=== PATIENT | male | born 1945 | race Caucasian/White ===

== ENCOUNTER → 2020-05-28 10:05 | Outpatient (BNVA) | payer MEDICARE, OTHER, SELFPAY | PROVIDERS: Family Provider Family Medicine Adult Medicine; PCP Emergency Medicine Emergency Medical Services; Visit Provider Urology | DX: N40.1 Benign prostatic hyperplasia with lower urinary tract symptoms (principal); N39.41 Urge incontinence; N13.8 Other obstructive and reflux uropathy | CPT/HCPCS: 81001 ==

== ENCOUNTER → 2023-08-01 12:53 | Outpatient (BNVA) | payer OTHER, SELFPAY | PROVIDERS: Family Provider Family Medicine Adult Medicine; PCP Emergency Medicine Emergency Medical Services; Referring Provider Emergency Medicine Emergency Medical Services; Visit Provider Student in an Organized Health Care Education/Training Program | DX: M25.561 Pain in right knee (principal); M25.562 Pain in left knee; M17.0 Bilateral primary osteoarthritis of knee | CPT/HCPCS: 73560; 73565; 99204 ==

== ENCOUNTER → 2023-10-03 14:34 | Outpatient (BNVA) | payer OTHER, SELFPAY | PROVIDERS: Family Provider Family Medicine Adult Medicine; PCP Emergency Medicine Emergency Medical Services; Visit Provider Student in an Organized Health Care Education/Training Program | DX: M17.0 Bilateral primary osteoarthritis of knee (principal); Z01.818 Encounter for other preprocedural examination | CPT/HCPCS: 80053; 81001; 85025; 99214 ==

== ENCOUNTER 2023-10-05 13:01 | Outpatient (CLI) | payer OTHER, SELFPAY ==
--- NOTE | 2023-10-05 13:00 | CT_ITS ---
WS: [id number] CT LEFT knee, noncontrast HISTORY: djd TECHNIQUE: Protocol for JOSIAS total knee replacement has been obtained. This includes axial imaging th rough the LEFT hip, LEFT knee and LEFT ankle. DLP: 1025.57 mGy COMPARISON: None available. Pelvis: No osseous destruction. Normal appearance of the joint space. LEFT knee: Mild to moderate tricompartment joint space narrowing with osteophytes. Small suprapatella r joint effusion. There is a large lobulated Peterson's cyst. Calcification in the popliteal artery. Unremarkable LEFT ankle. IMPRESSION: CT imaging provided for [facility] robotic total knee replacement.
== END 2023-10-05 13:02 | disposition home or self-care (01) ==
LOC: RAD 13:01
PROVIDERS: PCP Emergency Medicine Emergency Medical Services; Visit Provider Student in an Organized Health Care Education/Training Program
DX: M17.0 Bilateral primary osteoarthritis of knee (principal)
CPT/HCPCS: 73700

== ENCOUNTER 2023-10-23 11:02 | Observation (INO) | payer OTHER, SELFPAY ==
[2023-10-23] VITALS (20 sets, daily range): BP systolic 91–131; BP diastolic 51–75; PULSE 60–107; RESP 14–20; TEMP 36.1–36.5; O2SAT 91–99; BMI 23.3; BMI 24.4
[2023-10-23] MEDS: lactated ringers 500 ML IV (06:41)
[2023-10-23] MEDS: ketorolac 30 mg/mL INJ IVP (06:43)
[2023-10-23] MEDS: acetaminophen 1,000 MG/100 ML PIGGYBACK 400 MG IV ×3 (06:47→18:42)
[2023-10-23] MEDS: scopolamine 1.5 Patch 1 PATCH TRANSDERMA (06:48)
[2023-10-23 06:50] LABS: Basophils # 0.1 10^3/uL (0.0-0.1); Basophils % 1.7 %; Eosinophils # 0.9 10^3/uL (0.0-0.8); Eosinophils % 11.7 %; Hematocrit 41.4 % (37-53); Lymphocytes # 2.3 10^3/uL (0.8-4.8); Lymphocytes % 30.4 %; Mean Corpuscular HGB Conc 34.1 g/dL (30-55); Mean Corpuscular Hemoglobin 32.3 pg (27-33); Mean Corpuscular Volume 94.7 fl (82-101); Mean Platelet Volume 8.6 fL (7.4-10.4); Monocytes # 0.7 10^3/uL (0.2-0.9); Monocytes % 9.4 %; Neutrophils # 3.46 10^3/uL (1.8-7.7); Neutrophils % 46.7 %; Nucleated Red Blood Cells % 0 %; Platelet Count 244 10^3/cmm (157-399); Red Blood Count 4.37 10^6/uL (3.85-5.65); Red Cell Distribution Width 13.4 % (12.1-15.1); White Blood Count 7.43 10^3/uL (3.29-11.43)
--- NOTE | 2023-10-23 07:03 | W.PM.OPSUD ---
Surgery/Procedure H&P Update DATE OF PROCEDURE: October 23, 2023 DATE H&P PERFORMED: 10/03/22 H&P UPDATE INFORMATION: I have reviewed H&P completed within last 30 days, I have examined patient prior to procedure and No changes to prior documentation PREOP DIAGNOSIS: left knee degenerative joint disease PRIMARY INDICATION FOR PROCEDURE: Left knee degenerative joint disease PLANNED PROCEDURE: Operation Date: 10/23/23 08:05 Proposed Procedures p Left Kaiser Robot Total Knee Arthroplasty(Left) - Juan Ramon Flores DO
[2023-10-23 07:11] LABS: Anion Gap 14.4 (5-19); Blood Urea Nitrogen 20 mg/dL (8-23); Calcium 9.6 mg/dL (8.5-10.5); Carbon Dioxide 26 mmol/L (22-29); Chloride 101 mmol/L (98-107); Glucose 99 mg/dL (65-115); Osmolality Calculated 287 mOsm/kg (285-295); Potassium 4.4 mmol/L (3.5-5.1); Sodium 137 mmol/L (136-145)
[2023-10-23] MEDS: sodium chloride 0.9% 1,000 ML 30 ML IV (07:21)
--- NOTE | 2023-10-23 07:25 | ANES.PREANE2 ---
Pre-Anesthetic Assessment Height/Weight: Height 1.8 m Weight 75.75 kg Temp Pulse Resp BP Pulse Ox O2 Del Method 97.4 F L 65 16 131/71 96 Room Air 10/23/23 06:29 10/23/23 06:29 10/23/23 06:29 10/23/23 06:29 10/23/23 06:29 10/23/23 06:29 Preop Diagnosis: left knee degenerative joint disease Operation Date: 10/23/23 08:05 Proposed Procedures p Left Kaiser Robot Total Knee Arthroplasty(Left) - Juan Ramon Flores DO Familial anesthetic complications: None Was Beta Stacy taken within 24 hours: Yes Was Clonidine taken within 24 hours: N/A Last intake: Intake Last Liquid Date 10/22/23 Last Liquid Time 00:00 Last Solid Date 10/22/23 Last Solid Time 19:00 Social No alcohol and No tobacco Exam alert, oriented x 3, clear to auscultation bilaterally and regular rate & rhythm Airway Mallampati: Class III Dentition: full CV/HEM Hypertension GI Gastroesophageal Reflux Disease Anesthetic Plan ASA status: 2 Anesthesia: Regional (specify below) Other: spinal + adductor Risk of > 500 ml blood loss (7ml/kg in children): Yes, adequate IV access and fluids planned Medications/Allergies Home Medications Medication Instructions Recorded Confirmed Last Taken Type diclofenac sodium 75 mg 75 mg PO BID 05/28/20 10/23/23 10/22/23 History tablet,delayed release lisinopril 20 mg tablet 20 mg PO DAILY 05/28/20 10/23/23 10/22/23 History metoprolol tartrate 50 mg tablet 50 mg PO DAILY 05/28/20 10/23/23 10/23/23 History omeprazole 20 mg capsule,delayed 20 mg PO DAILY 05/28/20 10/23/23 10/22/23 History release Aerial Survey Technician Brace (Medial) #1 ea 08/01/23 10/03/23 Unknown Rx tamsulosin 0.4 mg capsule 0.4 mg PO DAILY 10/20/23 10/23/23 10/22/23 History Allergies Allergy/AdvReac Type Severity Reaction Status Date / Time No Known Allergies Allergy Verified 10/20/23 15:37 Current Medications Generic Name Dose Route Start Last Admin Trade Name Freq PRN Reason Stop Dose Admin Sodium Chloride 1,000 mls @ 30 mls/hr 10/23/23 06:15 10/23/23 07:21 Sodium Chloride 0.9% IV 10/24/23 06:14 30 mls/hr .Q24H LEANDRO Administration PFSH Anesthesia Medical History Diverticulosis HTN (hypertension) Calculus of kidney Erectile dysfunction BPH with obstruction/lower urinary tract symptoms Surgical History Hx of oral surgery Hx of circumcision Family History Father , AT AGE 99 No problems noted. Mother CAD (coronary artery disease) Social History Smoking and tobacco/nicotine status: former use of tobacco/nicotine Alcohol intake: current Alcohol intake frequency: 0-2 Drinks per Day Substance/Drug Use: unknown Adopted: No Caregiver/support person: No Lives independently: No Household members: spouse Marital status: Current occupational status: retired Data Anesthesia 10/23/23 06:38 10/23/23 06:38 Short CBC 10/23/23 Range/Units 06:38 WBC 7.43 (3.29-11.43) 10^3/uL Hgb 14.10 (11.27-16.99) g/dL Hct 41.4 (37-53) % MCV 94.7 (82-101) fl Plt Count 244 (157-399) 10^3/cmm Neut % (Auto) 46.7 % Neut # (Auto) 3.46 (1.8-7.7) 10^3/uL BMP 10/23/23 06:38 Sodium 137 Potassium 4.4 Chloride 101 Carbon Dioxide 26 BUN 20 Creatinine 0.8 Glucose 99 Calcium 9.6 Cardiac Studies: No Data to Display
--- NOTE | 2023-10-23 07:26 | ANES.PROC ---
Anesthesia Procedures Procedure/Date: 10/23/23 Nerve Block ^: Nerve Block 1: Main Anesthesia: spinal anesthesia block Time Out Performed: Yes Consent: requested by attending/covering physician, from patient, risks and benefits reviewed, patient agrees to proceed and emergency procedure Nerve block location: adductor canal (L) Anesthesia monitors applied: pulse oximetry, EKG and BP cuff Nerve block position: supine Anesthetic Used: ropivicaine 0.5% (30 ml) and with decadron (4 mg) Nerve Stimulator Used?: No Interscalene/Femoral BLK: 4 stimuplex 21 g needle used for position and inplane approach, visualize local anesthetic spread and no vascular puncture identified Injection: neg aspiration of heme Patient Tolerated Procedure: well and no complications Complications: none
[2023-10-23] MEDS: ceFAZolin 2,000 MG in sodium chloride 0.9% (plus) 50 ML 100 MG IV ×3 (07:39→23:30)
[2023-10-23] MEDS: tranexamic acid 1,000 mg/10mL SDV 1000 MG IV (08:25)
[2023-10-23] MEDS: vancomycin 1,000 MG SDV 1000 MG XX (08:48)
[2023-10-23] MEDS: ROPivacaine 0.2% Premix 100 mL 200 MG INTRA-ARTI (08:49)
[2023-10-23] MEDS: ketorolac 30 mg/mL INJ XX (08:49)
[2023-10-23] MEDS: EPINEPHrine 1 mg/mL INJ XX (08:49)
[2023-10-23] MEDS: tranexamic acid 1,000 mg/10mL SDV 1000 MG XX (08:49)
--- NOTE | 2023-10-23 10:02 | W.PM.BPON ---
Date of Procedure: 10/23/2023 Surgeon: Juan Ramon Flores DO Licensed Physical Therapist Assistant(s): Timbo Flores PA-C Procedure(s) performed: Left total knee arthroplasty Kaiser robotic assisted Findings of the procedure(s): Patient was found to have severe degenerative joint disease of the left knee underwent left total knee arthroplasty Kaiser robotic assisted without complications or issues Estimated blood loss: 25 mL Specimen(s) removed: Tibia femur and patellar bone cuts removed Post-operative diagnosis: Left knee degenerative joint disease
--- NOTE | 2023-10-23 10:04 | P.OP_ITS ---
Operative Report Date of procedure: October 23, 2023 Surgeon: Juan Ramon Flores DO [employer]: Timbo Flores PA-C: PA was necessary for assistance in this case with leg positioning retraction and protection of neurovascular structures as well as assistance in implantation wound closure and dressing application. Procedure: Preoperative diagnosis: Left knee degenerative joint disease Post-op diagnosis: Same Procedure done: Left total knee arthroplasty, cemented?robotic assisted Kaiser Implants: Winthrop triathlon size 5 femur CR cemented?left Winthrop triathlon size? 5 tibia universal baseplate cemented Winthrop triathlon asymmetric patella size 38 mm Leelee triathlon polyethylene 11mm Surgeon: Juan Ramon Flores DO Estimated blood?loss: 25 mL Tourniquet 75minutes IV fluids: 1300 mL Urine output: 200 mL Complications: None Condition: stable Disposition: floor Brief History: Patient is a 78-year-old female with with chronic?left knee degenerative joint disease.? Patient has been worked up in the outpatient setting in the orthopedic office at this point time through shared decision making given? [id number] arthritis as well as failed conservative treatment, and pt would?like to proceed with a?left total knee arthroplasty.? Through shared decision making elected to proceed with surgical intervention for?left total knee arthroplasty.? We talked about continued conservative treatment and surgical intervention as far as the risk benefits complications alternatives surgical and nonsurgical treatment options.? At this point time understanding patient risks with surgery he agrees to proceed with surgical intervention.? Once again? risk with surgery include but are not?limited to make it better make it worse blood clot, heart attack, stroke, on the table, infection, injury to nerves or vessels, persistent pain, arthrofibrosis, implant failure.? Understanding these risks patient agrees to proceed with surgical intervention consent was obtained in the office.? All questions answered. Procedure: Patient was seen and evaluated in the preoperative holding area.? Consent was reviewed and signed with patient with plan for?left total knee arthroplasty.? All questions answered.? Correct extremity marked.? Patient seen and evaluated by the anesthesia department and once cleared for surgery was taken back to the operative suite.? Patient was placed into a supine position on the OR table.? All bony prominences were well-padded.? Patient was appropriately secured to the bed.? Patient underwent anesthesia per the anesthesia department.? Patient received spinal anesthesia and? Delacruz catheter was placed.? A nonsterile tourniquet was applied to the?left thigh.? At this point in time a final timeout performed.? Patient received appropriate preoperative antibiotics and TXA. Next the?left?lower extremity was then prepped and draped in standard orthopedic fashion. Esmarch tourniquet was used exsanguinate the?left?lower extremity.? Tourniquet was insufflated to 250 mmHg. A standard anterior incision was made over midline of the knee.? Sharp scalpel excision through skin and subcutaneous tissue full-thickness skin flaps were made.? Fascia was elevated off of the extensor retinaculum was stable with medial parapatellar arthrotomy was then made.? The performed standard sequential releases..? Immediately on entry into the joint patient was found to have severe eburnated bone and tricompartmental arthritic changes noted.? With significant osteophyte formation.? Next the the patella was then stuffed and the knee was then flexed.?? Uyen was placed superiorly around the anterior aspect of the femur this was freed of synovium and I subsequently then placed by 2 femur pins to establish my femur arrays for the Kaiser robot.? These were then placed bicortically and? femur array was then appropriately secured with appropriate visualization.? Next attention was turned towards the tibial rays.? These were then drilled seq uentially bicortically in parallel fashion and intraincisional.? I then placed my guide as well as my tibial array on in place.? This was appropriately secured and had excellent visualization with the Kaiser robot.? Next the tibial checkpoint as well as femur checkpoint were then placed.? At this point time I then subsequently established my head center as well as my medial?lateral malleoli as well as my checkpoints.? Next utilizing standard Kaiser technology I then mapped out the appropriate points and confirmation points around the femur as well as the tibia in standard fashion.? Once this was then done I then removed all osteophytes in preparation for dynamic testing.? All osteophytes were removed as well as I removed the ACL and the PCL was excised due to its significant tearing and degeneration noted.? At this point time the knee was brought into full extension and we performed our standard evaluation of our gap balancing stressing his?ligaments and extension as well as flexion appr opriate adjustments were made to have appropriate gap balancing in both flexion and extension.? This plan for final counts.? We get a preoperative plan evaluating our implants which was a size 6 femur and a size 5 tibia.? Next we brought in the Kaiser robot and sequentially made our femur cuts.? All excess bony cuts were then removed.? Finally we made our tibial cut.? Once this was done a standard PCL retractor was then placed into this position I excised the medial and?lateral meniscus.? The tibial cut was then subsequently removed all excess bony debris was removed.? I then utilized a?lamina mechanical spreader operator and remove the posterior osteophytes.? At this point time sized the tibia and confirmed this was a size 5.? I utilized our blunt probe to establish rotation of tibial implant.? Once this was done I then placed my tibia size 5 trial in appropriate position and then subsequently placed tibial pins to hold this into place placed a size 11 mm poly as well as a size 6 femur which was appropriately impacted in place knee was then subsequently brought into extension. Trials were then assessed,? this was stable with varus valgus stress in extension as well as had symmetrical translation when brought into flexion demonstrating symmetrical gaps. I had excellent balance gaps in flexion and extension with varus and valgus stresses.? At this point I was satisfied with these implants these were then verified and opened on the back table size 5 tibia, size 6 femur,? size 11 mm polythickness.? We did confirm appropriate gap balancing and stresses as well as alignment utilizing? Kaiser and were satisfied with this plan.? ?At this point time with my trials in place I then towel clip the patella everted this made appropriate measurements subsequently utilizing freehand technique performed by patellar resurfacing this was confirmed to be appropriate resection and subsequently sized to be a 38 mm ssymmetric.? My drill peg guides were then clamped and appropriate position and appropriate position in the patella for appropriate tracking and parallel with the joint.? Pegs were drilled trial implant was placed and the knee was then subsequently ranged and found to have excellent patellar tracking.? Femur pegs were then drilled.? Satisfied with our tibial placement rotation I then utilized the keel punch and prepped the tibia.? At this point time all of our trial implants were removed.? All checkpoints as well as guidepins and arrays were removed and appropriate counts made.? The wound bed? was thoroughly irrigated and dried and prepped for cementation.? Cement was mixed on the back table.? Once cement was ready this was then covered onto the tibia and the tibial baseplate was then impacted and all excess cement was removed.? Next the polyethylene was then impacted into place on the tibial baseplate.? Next cement was placed onto the femur as well as under the femur implants and impacted in to place and all excess cement was extruded and removed.? Knee was taken into full extension? to clear all excess cement was removed.? Warm saline was placed over the joint.? I then towel clip patella and dried for cementation. cemented the patella into place.? This was all clamped and the cement was allowed to cure.? Thorough irrigation performed with pulse?lavage.? I then placed my periarticular injection while the cement was curing.? Once cured the knee was taken through range of motion and had excellent stability and gaps were balanced in flexion and extension.? Tourniquet was then deflated. hemostasis satisfactory with electrocautery.? Next I then subsequently closed the capsule with Ethibond suture as well as a running strata fix suture.? Knee was then taken through range of motion 30 times.? Next the skin was then closed in?layered fashion of running stratifix sutures of deep and subcutenous tissue and skin.? ?closed in flexion and Dermabond glue was then placed over the incision this allowed to cure.? Incision was covered with OpSite, with ABDs soft roll and Sukhdev wrap.? Patient was then awakened from anesthesia and taken to PACU in stable condition. Disposition: Patient taken to PACU in stable condition will be admitted to the floor for pain control PT/OT weight-bear as tolerated?left?lower extremity dressing changes as needed, DVT prophylaxis. Pain control. Patient will receive appropriate postoperative antibiotics. patient will be seen today by the [facility] medicine team for medical management.? Patient will follow up with the office in 2 weeks.? Patient understands agrees with current plan.? All questions answered.
--- NOTE | 2023-10-23 10:42 | PM.PACU ---
PACU note Narrative: Patient is a 78-year-old male just underwent a left total knee arthroplasty. Pt transferred to PACU in stable condition. Dressing is dry. pt is awake and alert. pt can wiggle toes and plantarflex and dorsiflex foot. pt able to perform straight leg raise, Femoral nerve intact. Distal pulses are palpable toes are warm and well-perfused. Cap refill is normal and under 2 seconds. Sensation to foot is intact. Pain is controlled. Exam: awake Disposition: admitted
--- NOTE | 2023-10-23 10:43 | XRR_ITS ---
PROCEDURE INFORMATION: Exam: XR Left Knee Exam date and time: 10/23/2023 10:50 AM Age: 78 years old Clinical indication: Device placement; Joint replacement hardware; Prior surgery; Surgery date: Post-operative (0-2 days); Surgery type: L tka, ; additional info: Post L tka, do in pacu TECHNIQUE: Imaging protocol: Radiologic exam of the left knee. Views: 1 or 2 views. COMPARISON: CT knee LT [facility] [id number] 10/05/2023 1:17 PM FINDINGS: Bones/joints: Interval total left knee replacement in anatomic position with no complication evident. Postoperative changes noted in the soft tissues. Soft tissues: See Bones/joints finding. XR/XR knee LT 1-2V [id number] IMPRESSION: Interval total knee replacement.
--- NOTE | 2023-10-23 11:04 | ANE.PACU2 ---
Inpatient post-anesthesia follow up: Airway intact: Yes Vital signs: Temperature 97.0 F Pulse Rate 83 Respiratory Rate 16 Blood Pressure 100/70 Pulse Oximetry 92 Oxygen Delivery Me thod Room Air Oxygen Flow Rate Fraction of Inspir ed Oxygen Hydration adequate: Yes Nausea and vomiting: No Pain level: 1 Mental status: Baseline
[2023-10-23] MEDS: lactated ringers 1,000 ML 100 ML IV ×2 (11:52→23:30)
[2023-10-23] MEDS: TRAMadol 50 mg Tablet PO ×2 (11:53→17:12)
[2023-10-23] MEDS: chlorhexidine gluconate 0.12% Btl 473 mL 30 ML MUCOUS MEM ×2 (11:53→17:12)
[2023-10-23] MEDS: HYDROmorphone 1 mg/mL INJ 1 mL 0.5 MG IVP (15:19)
--- NOTE | 2023-10-23 17:00 | P.CONIM_ITS ---
Providers/Reason For Consult 2 Consulting Physician/Specialty*: Hospital service for postoperative management Reason for Consult*: Hospital service Attending Physician: Juan Ramon Flores DO Primary Care Provider: Norberto Michelle DO History of Present Illness History of Present Illness Kelvin Heart is a 78 year old male status post left total knee arthroplasty, hospitalist was consulted for postoperative management, patient remained hemodynamically stable, no active pain, very pleasant and cooperative during my evaluation. Patient is agreeable to use Eliquis at the time of discharge No active pain at the time of my evaluation. Planning to go home by tomorrow Review of Systems 2 Const: Denies: fever(s) Eyes: Denies: change in vision ENMT: Denies: throat pain Card: Denies: chest pain Medications/Allergies Home Medications Medication Instructions Recorded Confirmed Last Taken Type diclofenac sodium 75 mg 75 mg PO BID 05/28/20 10/23/23 10/22/23 History tablet,delayed release lisinopril 20 mg tablet 20 mg PO DAILY 05/28/20 10/23/23 10/22/23 History metoprolol tartrate 50 mg tablet 50 mg PO DAILY 05/28/20 10/23/23 10/23/23 History omeprazole 20 mg capsule,delayed 20 mg PO DAILY 05/28/20 10/23/23 10/22/23 History release Communications Equipment Supervisor Brace (Medial) #1 ea 08/01/23 10/03/23 Unknown Rx tamsulosin 0.4 mg capsule 0.4 mg PO DAILY 10/20/23 10/23/23 10/22/23 History apixaban 2.5 mg tablet (Eliquis) 2.5 mg PO BID 2 weeks #28 tabs 10/23/23 Unknown Rx ondansetron 4 mg disintegrating 4 mg PO Q8H PRN nausea and 10/23/23 Unknown Rx tablet vomiting 3 days #9 tabs calcium carbonate 600 mg-vitamin 1 tab PO DAILY Bone health and 10/24/23 Unknown Rx D3 10 mcg (400 unit) tablet healing 30 days #30 tabs (Calcium 600 + D(3)) oxycodone 5 mg tablet 5 mg PO Q6H PRN pain postop 7 days 10/24/23 Unknown Rx #28 tabs Allergies Allergy/AdvReac Type Severity Reaction Status Date / Time No Known Allergies Allergy Verified 10/20/23 15:37 Current Medications Generic Name Dose Route Start Last Admin Trade Name Freq PRN Reason Stop Dose Admin Chlorhexidine Gluconate 30 ml 10/23/23 13:00 10/23/23 11:53 Chlorhexidine Gluconate 0.12% Btl 473 Ml MUCOUS MEM 30 ml QID LEANDRO Administration Hydromorphone HCl 0.5 mg 10/23/23 11:26 10/23/23 15:19 Hydromorphone 1 Mg/Ml Inj 1 Ml IVP 0.5 mg Q4H PRN Administration BREAKTHROUGH PAIN Lactated Ringer's 1,000 mls @ 100 mls/hr 10/23/23 11:26 10/23/23 11:52 Lactated Ringers IV 100 mls/hr .Q10H LEANDRO Administration Acetaminophen 1,000 mg in 100 mls @ 400 mls/hr 10/23/23 11:26 10/23/23 13:32 Acetaminophen IV 10/24/23 03:40 Infused Q8H LEANDRO Infusion Cefazolin Sodium 2,000 mg/ 50 mls @ 100 mls/hr 10/23/23 15:30 10/23/23 16:34 Sodium Chloride IV 10/24/23 07:59 Infused Q8H LEANDRO Infusion Protocol Tramadol HCl 50 mg 10/23/23 11:26 10/23/23 11:53 Tramadol 50 Mg Tablet PO 50 mg Q4H PRN Administration MILD TO MODERATE PAIN PFSH Acute 2 PFSH: Medical History Diverticulosis HTN (hypertension) Calculus of kidney Erectile dysfunction BPH with obstruction/lower urinary tract symptoms Surgical History Hx of oral surgery Hx of circumcision Family History Father , AT AGE 99 No problems noted. Mother CAD (coronary artery disease) Social History Smoking and tobacco/nicotine status: former use of tobacco/nicotine Alcohol intake: current Alcohol intake frequency: 0-2 Drinks per Day Substance/Drug Use: unknown Adopted: No Caregiver/support person: No Lives independently: No Household members: spouse Marital status: Current occupational status: retired Vitals/I&O/Wt Last Vital Signs Temp 97.0 F L 10/23/23 11:04 Pulse 64 10/23/23 16:15 Resp 17 10/23/23 16:15 BP 107/64 10/23/23 16:15 Pulse Ox 99 10/23/23 16:15 O2 Del Method Room Air 10/23/23 16:15 10/23/23 10/23/23 10/23/23 06:59 14:59 22:59 Intake Total 2290 / 2290 50 / 2340 Output Total 225 / 225 Balance 2064 / 2064 50 / 2115 Weight last 48 hrs Weight 79.464 kg Weight 75.75 kg Physical Exam 2 Narrative: Pleasant and cooperative GCS 15 Knee covered with dressing in the brace Nonfocal neuroexam Pleasant and cooperative Currently on room air Urinary Catheter Management: Delacruz: Cath Placed During This Visit: yes Urinary Catheter Date of Insertion: 10/23/23 Urinary Catheter Time of Insertion: 08:00 Data 10/24/23 03:24 10/24/23 03:24 A&P Assessment and plan (1) BPH with obstruction/lower urinary tract symptoms: (2) S/P total knee arthroplasty: Plan Patient is doing well postop day 0 total knee arthroplasty Passing gas Hemodynamic stable Will need Eliquis at the time of discharge He will also get opioids by Dr. Flores Full code Outpatient orthopedic evaluation Medicine team will follow along Consult Attestations 2 Medical Necessity Statement: Discharge tomorrow Diagnoses BPH with obstruction/lower urinary tract symptoms N40.1; N13.8 S/P total knee arthroplasty Z96.659
[2023-10-23] MEDS: mupirocin oint 22 gm 1 APPLIC NASAL (17:12)
[2023-10-23] MEDS: calcium carb-vit d 600mg/400unit 1 Tablet 1 EACH PO (17:12)
[2023-10-23] MEDS: iron polysaccharide complex 150 mg Capsule PO (17:12)
[2023-10-23] MEDS: tranexamic acid 1,000 MG/100 ML PREMIX 600 MG IV (17:12)
[2023-10-23] MEDS: docusate sodium 100 mg Capsule PO (17:12)
[2023-10-23] MEDS: oxyCODONE 5 mg IR Tab/Cap PO (23:46)
[2023-10-23] MEDS: ketorolac 30 mg/mL INJ 15 MG IVP (23:46)
--- NOTE | 2023-10-24 02:25 | PC.NURSE ---
ice packs ice removed and replaced as ordered
--- NOTE | 2023-10-24 02:29 | PC.NURSE ---
pt meds pt states he was told he could take his home meds while here. pt was educated that they had to be sent to pharmacy prior to and we would need to get a one time order for tonight if he wanted. pt vitals were stable and he agreed to wait until the am to revisit meds.
[2023-10-24] MEDS: acetaminophen 1,000 MG/100 ML PIGGYBACK 400 MG IV (03:29)
[2023-10-24 04:00] VITALS: BP 115/66; PULSE 77; RESP 14; TEMP 36.1; O2SAT 92
[2023-10-24 04:16] LABS: Basophils % 0.2 %; Hematocrit 34.8 % (37-53); Lymphocytes # 1.1 10^3/uL (0.8-4.8); Lymphocytes % 8.3 %; Mean Corpuscular HGB Conc 33.9 g/dL (30-55); Mean Corpuscular Volume 97.2 fl (82-101); Mean Platelet Volume 9.2 fL (7.4-10.4); Monocytes # 0.9 10^3/uL (0.2-0.9); Monocytes % 6.4 %; Neutrophils # 11.17 10^3/uL (1.8-7.7); Neutrophils % 84.6 %; Nucleated Red Blood Cells % 0 %; Platelet Count 225 10^3/cmm (157-399); Red Blood Count 3.58 10^6/uL (3.85-5.65); Red Cell Distribution Width 13.2 % (12.1-15.1); White Blood Count 13.21 10^3/uL (3.29-11.43)
[2023-10-24 04:35] LABS: Anion Gap 14.2 (5-19); Blood Urea Nitrogen 19 mg/dL (8-23); Calcium 8.7 mg/dL (8.5-10.5); Carbon Dioxide 23 mmol/L (22-29); Chloride 104 mmol/L (98-107); Glucose 124 mg/dL (65-115); Osmolality Calculated 288 mOsm/kg (285-295); Potassium 4.2 mmol/L (3.5-5.1); Sodium 137 mmol/L (136-145)
[2023-10-24 07:48] VITALS: BP 114/67; PULSE 67; RESP 18; TEMP 36.5; O2SAT 95
--- NOTE | 2023-10-24 07:49 | P.DS_ITS ---
Discharge Providers Date of Admission: 10/23/23 11:02 Date of Discharge: October 24, 2023 Attending Provider at Admission: Juan Ramon Flores DO Attending Provider at Discharge: Juan Ramon Flores DO Consults: Dr. Trejo?hospitalist Primary Care Provider: Norberto Michelle DO Reason for Visit Reason for Visit: M17.0 Brief History: Status post left total knee arthroplasty Hospital Course Hospital Course Patient presented to the preoperative holding area with plan for left total knee arthroplasty after patient has been worked up in the outpatient setting for failed conservative treatment of [left] knee degenerative joint disease. Once cleared by anesthesia for surgery patient subsequently was taken back to the operative suite underwent anesthesia per anesthesia department and then subsequently underwent a [left] total knee arthroplasty. Procedure was performed without any complications patient was taken to PACU in stable condition patient recovered well in PACU and then was admitted to the floor postoperatively internal medicine was consulted and on board for medical management and assistance with care. Patient received appropriate PT/OT, postoperative antibiotics, postoperative TXA, pain control, postoperative DVT prophylaxis. Elevation and ice. Patient encouraged for knee range of motion allowed weightbearing as tolerated to the operative lower extremity. Dressing was changed as needed, labs were monitored daily. Patient recovered well postoperatively and worked well and progressed well with therapy. It was determined on postoperative day [ 1] the patient was stable for discharge from an orthopedic standpoint. Patient was comfortable with discharge and plan was discharged home. Patient received appropriate discharge instructions as well as pain medication and DVT prophylaxis postoperatively. Given appropriate instructions for dressing management. Patient will follow-up with Dr. Flores/orthopedics in the office in 2 weeks. All questions answered. Understand if there is any issues questions or concerns and contact the office. Physical Exam Narrative: Examination left knee dressings on in place is clean dry and intact compartments are soft compressible calf soft nontender patient able to wiggle toes plantarflex and dorsiflex ankle patient is able to perform straight leg raise distal pulses are palpable toes warm well-perfused Urinary Catheter Management: Delacruz: Cath Placed During This Visit: yes, but has since been removed by the nurse Reason for Continuing Indwelling Catheter: Perioperative Use in Selected Surgeries Urinary Catheter Date of Insertion: 10/23/23 Urinary Catheter Time of Insertion: 08:00 Date Urinary Catheter Removed: 10/24/23 Time Urinary Catheter Discontinued: 06:33 Discharge Data Studies Completed and Pending Completed Studies During Hospitalization Category Date Time Status XR knee LT 1-2V 31709 Routine Exams 10/23/23 10:43 Completed Pending at discharge Category Date Time Status Basic Metabolic Panel AM LABS Lab 10/25/23 04:00 Ordered Basic Metabolic Panel AM LABS Lab 10/26/23 04:00 Ordered Complete Blood Count w/Auto AM LABS Lab 10/25/23 04:00 Ordered Complete Blood Count w/Auto AM LABS Lab 10/26/23 04:00 Ordered Radiology Impressions Knee X-Ray 10/23/23 10:43 IMPRESSION: Interval total knee replacement. Laboratory Results WBC 13.21 10^3/uL (3.29-11.43) H 10/24/23 03:24 RBC 3.58 10^6/uL (3.85-5.65) L 10/24/23 03:24 Hgb 11.80 g/dL (11.27-16.99) 10/24/23 03:24 Hct 34.8 % (37-53) L 10/24/23 03:24 MCV 97.2 fl (82-101) 10/24/23 03:24 MCH 33.0 pg (27-33) 10/24/23 03:24 MCHC 33.9 g/dL (30-55) 10/24/23 03:24 RDW 13.2 % (12.1-15.1) 10/24/23 03:24 Plt Count 225 10^3/cmm (157-399) 10/24/23 03:24 MPV 9.2 fL (7.4-10.4) 10/24/23 03:24 Neut % (Auto) 84.6 % 10/24/23 03:24 Lymph % (Auto) 8.3 % 10/24/23 03:24 [place] % (Auto) 6.4 % 10/24/23 03:24 Eos % (Auto) 0.0 % 10/24/23 03:24 Baso % (Auto) 0.2 % 10/24/23 03:24 Neut # (Auto) 11.17 10^3/uL (1.8-7.7) H 10/24/23 03:24 Lymph # (Auto) 1.1 10^3/uL (0.8-4.8) 10/24/23 03:24 [place] # (Auto) 0.9 10^3/uL (0.2-0.9) 10/24/23 03:24 Eos # (Auto) 0.0 10^3/uL (0.0-0.8) 10/24/23 03:24 Baso # (Auto) 0.0 10^3/uL (0.0-0.1) 10/24/23 03:24 Nucleated RBC % (auto) 0 % 10/24/23 03:24 Nucleated RBCs # 0.0 /100WBC 10/24/23 03:24 Sodium 137 mmol/L (136-145) 10/24/23 03:24 Potassium 4.2 mmol/L (3.5-5.1) 10/24/23 03:24 Chloride 104 mmol/L (98-107) 10/24/23 03:24 Carbon Dioxide 23 mmol/L (22-29) 10/24/23 03:24 Anion Gap 14.2 (5-19) 10/24/23 03:24 BUN 19 mg/dL (8-23) 10/24/23 03:24 Creatinine 0.8 mg/dL (0.7-1.2) 10/24/23 03:24 GFR Calculation Not Reportable 10/24/23 03:24 Glucose 124 mg/dL (65-115) H 10/24/23 03:24 Calculated Osmolality 288 mOsm/kg (285-295) 10/24/23 03:24 Calcium 8.7 mg/dL (8.5-10.5) 10/24/23 03:24 Blood Type O Positive 10/23/23 06:38 Rho(D) Type Rh positive 10/23/23 06:38 Antibody Screen Negative 10/23/23 06:38 Procedures Performed Left TKA Vitals Last Vital Signs Temp 97.7 F 10/24/23 07:48 Pulse 67 10/24/23 07:48 Resp 18 10/24/23 07:48 BP 114/67 10/24/23 07:48 Pulse Ox 95 10/24/23 07:48 O2 Del Method Room Air 10/24/23 07:48 Discharge Plan Discharge Patient Disposition: Home Condition: Stable Prescriptions: New Eliquis 2.5 mg tablet 2.5 mg PO BID 14 Days Qty: 28 0RF oxycodone 5 mg tablet 5 mg PO Q6H PRN (Reason: pain postop) 7 Days Qty: 28 0RF Calcium 600 + D(3) 600 mg-10 mcg (400 unit) tablet 1 tab PO DAILY 30 Days Qty: 30 0RF Senna-S 8.6-50 mg tablet 1 tab-cap PO BID Qty: 20 0RF Continued metoprolol tartrate 50 mg tablet 50 mg PO DAILY lisinopril 20 mg tablet 20 mg PO DAILY diclofenac sodium 75 mg tablet,delayed release (DR/EC) 75 mg PO BID omeprazole 20 mg capsule,delayed release(DR/EC) 20 mg PO DAILY (DME) Activity Leader Brace (Medial) See Rx Instructions .Route .MEDSUPPLY Qty: 1 0RF Rx Instructions: As directed tamsulosin 0.4 mg capsule 0.4 mg PO DAILY Discharge Orders: Discharge Order (Routine); Ordered 10/24/23 Ordered By: Juan Ramon Flores Referrals: Juan Ramon Flores DO [Physician] - 11/07/23 10:45 am Discharge Diet: Advance as tolerated Discharge Activity: Increase activity as tolerated, Use walker/crutches as instructed and As per PT/OT instructions Patient Instructions: Oxycodone, Rapid Release (By mouth), Calcium Supplement (By mouth), Apixaban (By mouth) (Eliquis), Total Knee Replacement (GEN), Joint Replacement Stoplight Activity Restrictions/Additional Instructions: Orthopedic discharge instructions keep incisions clean dry and intact, leave Silverlon bandage dressings on in place for 7 days after that may rinse incisions with warm soapy water pat dry and redress with a dry dressing. Patient may weight-bear as tolerate to the operative extremity Utilize crutches as needed Encourage knee range of motion Ice and elevate as needed for pain and swelling Take pain medication as prescribed Take antinausea medication as needed The prescribed Eliquis twice daily for the next 14 days for blood clot preven tion May supplement for pain with ibuprofen [id number] as needed No baths or soaks Follow-up in the orthopedic office in 2 weeks Contact the office for any questions or concerns Discharge Attestations Time Spent in Discharge Care*: less than 30 min Quality Metrics Clinical Quality Measures [ No reported AMI, CVA or VTE this stay] Coding Level of Care Code Acute Code for Chg Fwd Time Spent (min) 25
[2023-10-24] MEDS: docusate sodium 100 mg Capsule PO (09:21)
[2023-10-24] MEDS: multivitamin therapeutic Tablet 1 TAB PO (09:21)
[2023-10-24] MEDS: apixaban 5 mg Tablet 2.5 MG PO (09:21)
[2023-10-24] MEDS: iron polysaccharide complex 150 mg Capsule PO (09:22)
[2023-10-24] MEDS: calcium carb-vit d 600mg/400unit 1 Tablet 1 EACH PO (09:22)
[2023-10-24] MEDS: TRAMadol 50 mg Tablet PO (09:22)
[2023-10-24] MEDS: ceFAZolin 2,000 MG in sodium chloride 0.9% (plus) 50 ML 100 MG IV (09:22)
--- NOTE | 2023-10-24 09:22 | PC.PHAR ---
pt from surgery-unable to update med list due to having discharge orders already in
[2023-10-24] MEDS: chlorhexidine gluconate 0.12% Btl 473 mL 30 ML MUCOUS MEM (09:30)
[2023-10-24] MEDS: mupirocin oint 22 gm 1 APPLIC NASAL (09:31)
--- NOTE | 2023-10-24 10:04 | PC.CHAP ---
Pastoral Care Encounter/Spiritual Assessment Type of Contact [] Declined veterinary meat inspector visit [] Patient/Family/Request visit [] Outpatient visit [] Follow-up visit [] Physician referral [] Code/Alert [x] Routine visit [] Staff referral [] Actively dying [] Patient sleeping [] Family support [] [] Out of room [] Palliative care [] [] Receiving care in room [] Pre-surgical visit [] Trauma [] Long length of stay [] ICU visit [] Other: Relational/Emotional Strength [x] Patient feels connected with others/family/visitors/staff [] Distress [] Loneliness/isolation [] Abandonment Spirituality of Patient [x] Person of Jessica [] Attends Pentecostalism of their Jessica [x] Believes in Prayer [] Reads Bible or Latter-Day materials [] There are Spiritual issues to 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 [x] Prayer [x] Active listening [] Non-anxious presence [x] Spiritual/emotional support [] Crisis/trauma care [] Spiritual counseling [] Bereavement support [] Provided bereavement packet [] Provided Bible/devotional materials [] Provided toy/stuffed animal, coloring book to patient or family member [] Provided Communion [] Anointing/[place] [] Salvation [x] Completed spiritual assessment [] Other: Impact on Illness or Injury [] Angry [] Fearful [] Anxious [] Often cries [] Exhaustion [] Unable to work [] Unable to attend roman catholic [] Unable to walk/stand [] Unable to read [] Unable to drive [] Unable to eat/drink [] Unable to sleep [] Unable to be with family [] Patient intubated [] Other: Summary Time spent with patient 5min
[2023-10-24 11:52] VITALS: BP 114/67; PULSE 67; RESP 18; TEMP 36.5; O2SAT 95
[2023-10-24 12:00] VITALS: BP 137/71; PULSE 87; RESP 19; TEMP 36.3; O2SAT 94
[2023-10-24 12:33] VITALS: RESP 16
[2023-10-24] MEDS: oxyCODONE 5 mg IR Tab/Cap PO (12:33)
[2023-10-24 14:28] VITALS: RESP 16
== END 2023-10-24 14:28 | disposition home or self-care (01) ==
LOC: MEDSURG 11:02
PROVIDERS: Physician Assistant; Admitting Provider Student in an Organized Health Care Education/Training Program; PCP Emergency Medicine Emergency Medical Services; Visit Provider Student in an Organized Health Care Education/Training Program
PROC: 8E0Y0CZ Robotic Assisted Procedure of Lower Extremity, Open Approach (ICD-10-PCS; CPT 27447; principal; 2023-10-23 08:05)
DX: M17.11 Unilateral primary osteoarthritis, right knee (principal); I10 Essential (primary) hypertension; N40.1 Benign prostatic hyperplasia with lower urinary tract symptoms; N13.8 Other obstructive and reflux uropathy; Z87.891 Personal history of nicotine dependence; K21.9 Gastro-esophageal reflux disease without esophagitis
CPT/HCPCS: 20985; 27447; 36415; 51702; 73560; 80048; 85025; 86850; 86900; 97110; 97116; 97161; 97165; C1776; G0378; J0131; J0171; J0690; J1100; J1170; J1885; J2250; J2405; J2704; J2795; J3370; J7030; J7120

== ENCOUNTER 2023-11-23 06:00 | Outpatient (CLI) | payer OTHER, SELFPAY | END 2023-11-23 23:59 | disposition home or self-care (01) | LOC: SPT 11-24 07:50 | PROVIDERS: Visit Provider Student in an Organized Health Care Education/Training Program | DX: Z01.818 Encounter for other preprocedural examination (principal) | CPT/HCPCS: 97760; 99214; L1812 ==

== ENCOUNTER → 2023-11-23 11:11 | Outpatient (BNVA) | payer OTHER, SELFPAY | PROVIDERS: PCP Emergency Medicine Emergency Medical Services; Visit Provider Student in an Organized Health Care Education/Training Program | DX: Z96.652 Presence of left artificial knee joint (principal); M17.11 Unilateral primary osteoarthritis, right knee | CPT/HCPCS: 73560; 73565 ==

== ENCOUNTER 2023-12-19 13:59 | Outpatient (CLI) | payer OTHER, SELFPAY ==
[2023-12-19 14:38] LABS: Add Urine Microscopic? NO; Charge for UA Resulting for Rev
[2023-12-19 14:42] LABS: Urine Appearance Clear (CLEAR); Urine Color Yellow (Yellow)
[2023-12-19 14:43] LABS: Basophils # 0.1 10^3/uL (0.0-0.1); Basophils % 1.5 %; Eosinophils # 1.2 10^3/uL (0.0-0.8); Eosinophils % 16.7 %; Hematocrit 39.6 % (37-53); Lymphocytes # 2.1 10^3/uL (0.8-4.8); Lymphocytes % 28.5 %; Mean Corpuscular HGB Conc 32.6 g/dL (30-55); Mean Corpuscular Volume 101.3 fl (82-101); Mean Platelet Volume 8.6 fL (7.4-10.4); Monocytes # 0.7 10^3/uL (0.2-0.9); Monocytes % 10.1 %; Neutrophils # 3.13 10^3/uL (1.8-7.7); Neutrophils % 42.9 %; Nucleated Red Blood Cells % 0 %; Platelet Count 261 10^3/cmm (157-399); Red Blood Count 3.91 10^6/uL (3.85-5.65); Red Cell Distribution Width 14.6 % (12.1-15.1)
[2023-12-19 14:43] LABS: Bilirubin Urine Neg (Negative); Blood Urine Neg (Negative); Glucose Urine UA Norm (Normal); Ketones Urine Negative (Negative); Leukocyte Esterase Urine Negative (Negative); Nitrate Urine Negative (Negative); Protein Urine Neg (Negative); Specific Gravity, Urine 1.015 (1.005-1.030); Urobilinogen Urine Norm (Negative); pH Urine 6 (5-7)
[2023-12-19 15:00] LABS: Alanine Aminotransferase 9 U/L (0-41); Albumin Level 4.2 g/dL (3.5-5.2); Alkaline Phosphatase 108 U/L (40-130); Anion Gap 14.7 (5-19); Aspartate Amino Transferase 21 U/L (0-40); Blood Urea Nitrogen 12 mg/dL (8-23); Calcium 8.7 mg/dL (8.5-10.5); Carbon Dioxide 27 mmol/L (22-29); Chloride 102 mmol/L (98-107); Glucose 94 mg/dL (65-115); Osmolality Calculated 288 mOsm/kg (285-295); Potassium 4.7 mmol/L (3.5-5.1); Sodium 139 mmol/L (136-145); Total Bilirubin 0.5 mg/dL (0.15-1.2); Total Protein 7.2 g/dL (6.6-8.7)
== END 2023-12-19 14:00 | disposition home or self-care (01) ==
LOC: LAB 14:01
PROVIDERS: PCP Student in an Organized Health Care Education/Training Program; Visit Provider Student in an Organized Health Care Education/Training Program
DX: Z01.818 Encounter for other preprocedural examination (principal)
CPT/HCPCS: 36415; 80053; 81003; 85025

== ENCOUNTER 2023-12-25 14:08 | Outpatient (CLI) | payer OTHER, SELFPAY ==
--- NOTE | 2023-12-25 14:30 | CT_ITS ---
WS: [id number] CT RIGHT knee, noncontrast HISTORY: M17.11 - Unilateral primary osteoarthritis, right knee TECHNIQUE: Protocol for JOSIAS total knee replacement has been obtained. This includes axial imaging th rough the RIGHT hip, RIGHT knee and RIGHT ankle. DLP: 1013.77 mGy.cm COMPARISON: None available. Pelvis: Mild bilateral SI joint arthritis. No bone destruction. No narrowing of the hip joints. No so ft tissue masses. Mild atherosclerotic plaque in the femoral and iliac arteries. RIGHT knee: Moderate tricompartment osteoarthritis. Small osteophytes in all compartments. No bone de struction. Moderate suprapatellar joint effusion. No mass. RIGHT ankle: No destruction. IMPRESSION: CT imaging provided for [facility] robotic total knee replacement.
== END 2023-12-25 14:09 | disposition home or self-care (01) ==
LOC: RAD 14:12
PROVIDERS: Visit Provider Student in an Organized Health Care Education/Training Program
DX: M17.11 Unilateral primary osteoarthritis, right knee (principal)
CPT/HCPCS: 73700

== ENCOUNTER 2024-01-03 10:30 | Observation (INO) | payer OTHER, MEDICARE, SELFPAY ==
[2024-01-03] VITALS (23 sets, daily range): BP systolic 66–139; BP diastolic 41–85; PULSE 52–94; RESP 14–18; TEMP 36.1–36.9; O2SAT 91–100; BMI 23.7
[2024-01-03] MEDS: lactated ringers 500 ML IV (06:46)
[2024-01-03] MEDS: acetaminophen 1,000 MG/100 ML PIGGYBACK 400 MG IV ×3 (06:46→22:33)
[2024-01-03] MEDS: sodium chloride 0.9% 1,000 ML 30 ML IV (06:46)
[2024-01-03] MEDS: ketorolac 30 mg/mL INJ IVP (06:47)
--- NOTE | 2024-01-03 07:00 | W.PM.OPSFHP ---
Same Day Surgery H&P Indication for Procedure/HPI DATE OF PROCEDURE: January 03, 2024 CHIEF COMPLAINT/INDICATIONFOR SURGICAL PROCEDURE: Right knee degenerative joint disease PREOP DIAGNOSIS: Right knee degenerative joint disease PLANNED PROCEDURE: Operation Date: 01/03/24 08:00 Proposed Procedures p [facility] Total Knee Arthroplasty(Right) - Juan Ramon Flores DO Medications/Allergies* Home Medications Medication Instructions Recorded Confirmed Type diclofenac sodium 75 mg 75 mg PO BID 05/28/20 01/02/24 History tablet,delayed release lisinopril 20 mg tablet 20 mg PO DAILY 05/28/20 01/02/24 History metoprolol tartrate 50 mg tablet 50 mg PO DAILY 05/28/20 01/02/24 History omeprazole 20 mg capsule,delayed 20 mg PO DAILY 05/28/20 01/02/24 History release tamsulosin 0.4 mg capsule 0.4 mg PO DAILY 10/20/23 01/02/24 History Allergies/Adverse Reactions Allergy/AdvReac Type Severity Reaction Status Date / Time No Known Allergies Allergy Verified 12/26/23 09:28 Current Medications: Generic Name Dose Route Start Last Admin Trade Name Freq PRN Reason Stop Dose Admin Lactated Ringer's 500 mls @ 500 mls/hr 01/03/24 06:28 01/03/24 06:46 Lactated Ringers IV 01/03/24 07:27 500 mls/hr .Q1H ONE Administration Sodium Chloride 1,000 mls @ 30 mls/hr 01/03/24 06:30 01/03/24 06:46 Sodium Chloride 0.9% IV 01/04/24 06:29 30 mls/hr .Q24H LEANDRO Administration Pertinent History/Comorbid Conditions* Medical History (Updated 12/27/23 @ 00:01 by EVANGELINA Hays) Diverticulosis HTN (hypertension) Calculus of kidney Erectile dysfunction BPH with obstruction/lower urinary tract symptoms Surgical History (Updated 12/27/23 @ 00:01 by EVANGELINA Hays) S/P total knee arthroplasty Hx of oral surgery Hx of circumcision Family History (Updated 05/28/20 @ 10:15 by Ethel Clarke LPN) Father, AT AGE 99 CAD (coronary artery disease) Mother Social History Smoking and tobacco/nicotine status: former use of tobacco/nicotine Alcohol intake: current Alcohol intake frequency: 0-2 Drinks per Day Substance/Drug Use: unknown Adopted: No Caregiver/support person: No Lives independently: No Household members: spouse Marital status: Current occupational status: retired Pertinent Exam Findings alert, oriented x 3, operative site marked and procedure specific exam findings Right knee tenderness to palpation refer to detailed orthopedic examination on 11/23/2023: Right Knee Exam: ROM 0 to greater than 120 degrees Patellar crepitus with ROM Medial joint line tenderness to palpation Lateral joint line tenderness to palpation Mild joint effusion Negative Judith's Negative Shannan's 10 degrees of Varus malalignment, correctable on exam Stable Varus and Valgus stress Gross motor sensory intact Recommendations Surgery/Procedure today Other Plans: Plan to proceed with right total knee arthroplasty?[facility] assisted. He understands in the office procedure the risk benefits complication alternatives of surgery. All questions answered at this time he is clear the preoperative clearance process and ready proceed with surgery today. All questions answered. Coding Level of Care Code Acute Code for Cyndi Jarrell
[2024-01-03 07:08] LABS: Basophils # 0.1 10^3/uL (0.0-0.1); Basophils % 1.5 %; Eosinophils # 1.1 10^3/uL (0.0-0.8); Mean Corpuscular HGB Conc 34.4 g/dL (30-55); Mean Corpuscular Hemoglobin 33.6 pg (27-33); Mean Corpuscular Volume 97.6 fl (82-101); Mean Platelet Volume 8.1 fL (7.4-10.4); Monocytes # 0.6 10^3/uL (0.2-0.9); Monocytes % 7.2 %; Neutrophils # 4.97 10^3/uL (1.8-7.7); Nucleated Red Blood Cells % 0 %; Platelet Count 259 10^3/cmm (157-399); Red Cell Distribution Width 13.8 % (12.1-15.1); White Blood Count 8.88 10^3/uL (3.29-11.43)
[2024-01-03 07:26] LABS: Blood Urea Nitrogen 16 mg/dL (8-23); Calcium 9.4 mg/dL (8.5-10.5); Carbon Dioxide 26 mmol/L (22-29); Chloride 100 mmol/L (98-107); Creatinine Clr Calc Pharmacy 84.4716; Glucose 106 mg/dL (65-115); Osmolality Calculated 284 mOsm/kg (285-295); Sodium 136 mmol/L (136-145)
[2024-01-03 07:27] LABS: Anion Gap 14.5 (5-19); Potassium 4.5 mmol/L (3.5-5.1)
--- NOTE | 2024-01-03 07:48 | P.ANESASSM_ITS ---
Pre-Anesthetic Assessment Height/Weight: Height 1.8 m Weight 77.111 kg Temp Pulse Resp BP Pulse Ox O2 Del Method 97.0 F L 78 18 127/85 96 Room Air 01/03/24 06:33 01/03/24 06:33 01/03/24 06:33 01/03/24 06:33 01/03/24 06:33 01/03/24 06:37 Preop Diagnosis: Right knee degenerative joint disease Operation Date: 01/03/24 08:00 Proposed Procedures p [facility] Total Knee Arthroplasty(Right) - Juan Ramon Flores DO Familial anesthetic complications: none Was Beta Stacy taken within 24 hours: Yes Was Clonidine taken within 24 hours: N/A Last intake: Intake Last Liquid Date 01/02/24 Last Liquid Time 19:00 Last Solid Date 01/02/24 Last Solid Time 18:30 Social No alcohol and No tobacco (h/o smoking) Exam alert, oriented x 3, clear to auscultation bilaterally and regular rate & rhythm Airway Submandibular: within normal limits Cervical ROM: within normal limits Mallampati: Class II Dentition: false Pulmonary Chronic Obstructive Pulmonary Disease CV/HEM Hypertension GI Gastroesophageal Reflux Disease Anesthetic Plan ASA status: 3 Anesthesia: Regional (specify below) (SAB with adductor blk) Medications/Allergies Home Medications Medication Instructions Recorded Confirmed Last Taken Type diclofenac sodium 75 mg 75 mg PO BID 05/28/20 01/02/24 12/29/23 History tablet,delayed release lisinopril 20 mg tablet 20 mg PO DAILY 05/28/20 01/02/24 01/02/24 History metoprolol tartrate 50 mg tablet 50 mg PO DAILY 05/28/20 01/02/24 01/02/24 History omeprazole 20 mg capsule,delayed 20 mg PO DAILY 05/28/20 01/02/24 01/02/24 History release Financial Professional Brace (Medial) #1 ea 08/01/23 11/23/23 Unknown Rx tamsulosin 0.4 mg capsule 0.4 mg PO DAILY 10/20/23 01/02/24 01/02/24 History hinged knee brace #1 ea 11/23/23 11/23/23 Unknown Rx Allergies Allergy/AdvReac Type Severity Reaction Status Date / Time No Known Allergies Allergy Verified 12/26/23 09:28 Current Medications Generic Name Dose Route Start Last Admin Trade Name Freq PRN Reason Stop Dose Admin Sodium Chloride 1,000 mls @ 30 mls/hr 01/03/24 06:30 01/03/24 06:46 Sodium Chloride 0.9% IV 01/04/24 06:29 30 mls/hr .Q24H LEANDRO Administration PFSH Anesthesia Medical History Diverticulosis HTN (hypertension) Calculus of kidney Erectile dysfunction BPH with obstruction/lower urinary tract symptoms Surgical History S/P total knee arthroplasty Hx of oral surgery Hx of circumcision Family History Father , AT AGE 99 No problems noted. Mother CAD (coronary artery disease) Social History Smoking and tobacco/nicotine status: former use of tobacco/nicotine Alcohol intake: current Alcohol intake frequency: 0-2 Drinks per Day Substance/Drug Use: unknown Adopted: No Caregiver/support person: No Lives independently: No Household members: spouse Marital status: Current occupational status: retired Data Anesthesia 01/03/24 06:54 01/03/24 06:44 Short CBC 01/03/24 Range/Units 06:54 WBC 8.88 (3.29-11.43) 10^3/uL Hgb 14.10 (11.27-16.99) g/dL Hct 41.0 (37-53) % MCV 97.6 (82-101) fl Plt Count 259 (157-399) 10^3/cmm Neut % (Auto) 56.0 % Neut # (Auto) 4.97 (1.8-7.7) 10^3/uL BMP 01/03/24 06:44 Sodium 136 Potassium 4.5 Chloride 100 Carbon Dioxide 26 BUN 16 Creatinine 0.8 Glucose 106 Calcium 9.4 Cardiac Studies: 2 No Data to Display
[2024-01-03] MEDS: ceFAZolin 2,000 MG in sodium chloride 0.9% (plus) 50 ML 100 MG IV ×3 (07:50→22:54)
[2024-01-03] MEDS: tranexamic acid 1,000 mg/10mL SDV 1000 MG IV (08:40)
[2024-01-03] MEDS: tranexamic acid 1,000 mg/10mL SDV 1000 MG XX (08:54)
[2024-01-03] MEDS: ketorolac 30 mg/mL INJ XX (08:54)
[2024-01-03] MEDS: EPINEPHrine 1 mg/mL INJ XX (08:54)
[2024-01-03] MEDS: ROPivacaine 0.2% Premix 100 mL 200 MG INTRA-ARTI (08:54)
[2024-01-03] MEDS: vancomycin 1,000 MG SDV 1000 MG XX (08:58)
--- NOTE | 2024-01-03 09:13 | ANES.PROC ---
Anesthesia Procedures Procedure/Date: 01/03/24 Nerve Block ^: Nerve Block 1: Main Anesthesia: spinal anesthesia block Time Out Performed: Yes Consent: requested by attending/covering physician, from patient, risks and benefits reviewed and patient agrees to proceed Nerve block location: adductor canal (right) Anesthesia monitors applied: pulse oximetry, EKG, BP cuff and oxygen Nerve block position: supine Anesthetic Used: ropivicaine 0.5% Amount of anesthesia used (mL): 20 Ultrasound used to: recognize landmarks Nerve Stimulator Used?: No Interscalene/Femoral BLK: 4 stimuplex 21 g needle used for position and inplane approach Injection: neg aspiration of heme Patient Tolerated Procedure: well Complications: none
--- NOTE | 2024-01-03 10:01 | P.BOP_ITS ---
Date of Procedure: 01/03/2024 Surgeon: Juan Ramon Flores DO Sheet Metal Shop Supervisor(s): DIANE Aguirre Procedure(s) performed: Right total knee arthroplasty?[facility] assisted Findings of the procedure(s): Right knee degenerative joint disease patient underwent procedure as planned without issues or complications Estimated blood loss: 25 mL Specimen(s) removed: Tibia femur and patellar bone cuts removed Post-operative diagnosis: Right knee degenerative joint disease
--- NOTE | 2024-01-03 10:03 | PM.OP ---
Operative Report Date of procedure: January 03, 2024 Surgeon: Juan Ramon Flores DO Rigging Worker: DIANE Aguirre Procedure: Preoperative diagnosis: Right knee degenerative joint disease Post-op diagnosis: Same Procedure done: Right total knee arthroplasty, cemented?robotic assisted [employer] Implants: Leelee triathlon size 6 femur CR cemented?Right Leelee triathlon size? 6 tibia universal baseplate cemented Leelee triathlon asymmetric patella size 35 mm Leelee triathlon polyethylene 10mm Surgeon: Juan Ramon Flores DO Estimated blood?loss: 25 mL Tourniquet 62minutes IV fluids: 1000 mL Urine output: 100 mL Complications: None Condition: stable Disposition: floor Brief History: Patient is a 78-year-old male with with chronic?Right knee degenerative joint disease.? Patient has been worked up in the outpatient setting in the orthopedic office at this point time through shared decision making given? [id number] arthritis as well as failed conservative treatment, and pt would?like to proceed with a?Right total knee arthroplasty.? Through shared decision making elected to proceed with surgical intervention for?Right total knee arthroplasty.? We talked about continued conservative treatment and surgical intervention as far as the risk benefits complications alternatives surgical and nonsurgical treatment options.? At this point time understanding patient risks with surgery he agrees to proceed with surgical intervention.? Once again? risk with surgery include but are not?limited to make it better make it worse blood clot, heart attack, stroke, on the table, infection, injury to nerves or vessels, persistent pain, arthrofibrosis, implant failure.? Understanding these risks patient agrees to proceed with surgical intervention consent was obtained in the office.? All questions answered. Procedure: Patient was seen and evaluated in the preoperative holding area.? Consent was reviewed and signed with patient with plan for?Right total knee arthroplasty.? All questions answered.? Correct extremity marked.? Patient seen and evaluated by the anesthesia department and once cleared for surgery was taken back to the operative suite.? Patient was placed into a supine position on the OR table.? All bony prominences were well-padded.? Patient was appropriately secured to the bed.? Patient underwent anesthesia per the anesthesia department.? Patient received spinal anesthesia and? Delacruz catheter was placed.? A nonsterile tourniquet was applied to the?Right thigh.? At this point in time a final timeout performed.? Patient received appropriate preoperative antibiotics and TXA. Next the?Right?lower extremity was then prepped and draped in standard orthopedic fashion. Esmarch tourniquet was used exsanguinate the?Right?lower extremity.? Tourniquet was insufflated to 250 mmHg. A standard anterior incision was made over midline of the knee.? Sharp scalpel excision through skin and subcutaneous tissue full-thickness skin flaps were made.? Fascia was elevated off of the extensor retinaculum was stable with medial parapatellar arthrotomy was then made.? The performed standard sequential releases..? Immediately on entry into the joint patient was found to have severe eburnated bone and tricompartmental arthritic changes noted.? With significant osteophyte formation.? Next the the patella was then stuffed and the knee was then flexed.?? Uyen was placed superiorly around the anterior aspect of the femur this was freed of synovium and I subsequently then placed by 2 femur pins to establish my femur arrays for the Kaiser robot.? These were then placed bicortically and? femur array was then appropriately secured with appropriate visualization.? Next attention was turned towards the tibial rays.? These were then drilled sequentially bicortically in parallel fashion and intraincisional.? I then placed my guide as well as my tibial array on in place.? This was appropriately secured and had excellent visualization with the Kaiser robot.? Next the tibial checkpoint as well as femur checkpoint were then placed.? At this point time I then subsequently established my head center as well as my medial?lateral malleoli as well as my checkpoints.? Next utilizing standard Kaiser technology I then mapped out the appropriate points and confirmation points around the femur as well as the tibia in standard fashion.? Once this was then done I then removed all osteophytes in preparation for dynamic testing.? All osteophytes were removed as well as I removed the ACL and the PCL was excised due to its significant tearing and degeneration noted.? At this point time the knee was brought into full extension and we performed our standard evaluation of our gap balancing stressing his?ligaments and extension as well as flexion appropriate adjustments were made to have appropriate gap balancing in both flexion and extension.? This plan for final counts.? We get a preoperative plan evaluating our implants which was a size 6 femur and a size 6 tibia.? Next we brought in the Kaiser robot and sequentially made our femur cuts.? All excess bony cuts were then removed.? Finally we made our tibial cut.? Once this was done a standard PCL retractor was then placed into this position I excised the medial and?lateral meniscus.? The tibial cut was then subsequently removed all excess bony debris was removed.? I then utilized a?lamina audiovisual production specialist and remove the posterior osteophytes.? At this point time sized the tibia and confirmed this was a size 6.? I utilized our blunt probe to establish rotation of tibial implant.? Once this was done I then placed my tibia size 6 trial in appropriate position and then subsequently placed tibial pins to hold this into place placed a size 10 mm poly as well as a size 6 femur which was appropriately impacted in place knee was then subsequently brought into extension. Trials were then assessed,? this was stable with varus valgus stress in extension as well as had symmetrical translation when brought into flexion demonstrating symmetrical gaps. I had excellent balance gaps in flexion and extension with varus and valgus stresses.? At this point I was satisfied with these implants these were then verified and opened on the back table size 6 tibia, size 6 femur,? size 10 mm polythickness.? We did confirm appropriate gap balancing and stresses as well as alignment utilizing? [employer] and were satisfied with this plan.? ?At this point time with my trials in place I then towel clip the patella everted this made appropriate measurements subsequently utilizing freehand technique performed by patellar resurfacing this was confirmed to be appropriate resection and subsequently sized to be a 35 mm asymmetric.? My drill peg guides were then clamped and appropriate position and appropriate position in the patella for appropriate tracking and parallel with the joint.? Pegs were drilled trial implant was placed and the knee was then subsequently ranged and found to have excellent patellar tracking.? Femur pegs were then drilled.? Satisfied with our tibial placement rotation I then utilized the keel punch and prepped the tibia.? At this point time all of our trial implants were removed.? All checkpoints as well as guidepins and arrays were removed and appropriate counts made.? The wound bed? was thoroughly irrigated and dried and prepped for cementation.? Cement was mixed on the back table.? Once cement was ready this was then covered onto the tibia and the tibial baseplate was then impacted and all excess cement was removed.? Next the polyethylene was then impacted into place on the tibial baseplate.? Next cement was placed onto the femur as well as under the femur implants and impacted in to place and all excess cement was extruded and removed.? Knee was taken into full extension? to clear all excess cement was removed.? Warm saline was placed over the joint.? I then towel clip patella and dried for cementation. cemented the patella into place.? This was all clamped and the cement was allowed to cure.? Thorough irrigation performed with pulse?lavage.? I then placed my periarticular injection while the cement was curing.? Once cured the knee was taken through range of motion and had excellent stability and gaps were balanced in flexion and extension.? Tourniquet was then deflated. hemostasis satisfactory with electrocautery. Vancomycin powder placed the wound for infection prophylaxis. next I then subsequently closed the capsule with Ethibond suture as well as a running strata fix suture.? Knee was then taken through range of motion 30 times.? Next the skin was then closed in?layered fashion of running stratifix sutures of deep and subcutenous tissue and skin.? ?closed in flexion and Prineo glue was then placed over the incision this allowed to cure.? Incision was covered with jessica dressing, with ABDs soft roll and Sukhdev wrap.? Patient was then awakened from anesthesia and taken to PACU in stable condition. Disposition: Patient taken to PACU in stable condition will be admitted to the floor for pain control PT/OT weight-bear as tolerated?Right?lower extremity dressing changes as needed, DVT prophylaxis. Pain control. Patient will receive appropriate postoperative antibiotics. patient will be seen today by the internal medicine team for medical management.? Patient will follow up with the office in 2 weeks.? Patient understands agrees with current plan.? All questions answered.
--- NOTE | 2024-01-03 10:14 | XRR_ITS ---
PROCEDURE INFORMATION: Exam: XR Right Knee Exam date and time: 01/03/2024 9:37 AM Age: 78 years old Clinical indication: Device placement; Joint replacement hardware; Prior surgery; Surgery date: Post-operative (0-2 days); Surgery type: Right tka; Additional info: Status post right tka TECHNIQUE: Imaging protocol: Radiologic exam of the right knee. Views: 1 or 2 views. COMPARISON: CT knee RT [facility] [id number] 12/25/2023 2:59 PM FINDINGS: Bones/joints: A knee prosthesis is well seated and well aligned. I see no worrisome abnormality. Soft tissues: Normal. XR/XR knee RT 1-2V 50900 IMPRESSION: Intact knee prosthesis
[2024-01-03] MEDS: albumin 12.5 GM/250 ML VIAL IV (11:00)
[2024-01-03] MEDS: ePHEDrine 50 mg/mL Inj 25 MG IVP (11:06)
[2024-01-03] MEDS: lactated ringers 1,000 ML 100 ML IV ×2 (12:37→21:16)
[2024-01-03] MEDS: chlorhexidine gluconate 0.12% Btl 473 mL 30 ML MUCOUS MEM ×3 (13:55→21:16)
--- NOTE | 2024-01-03 15:03 | ANE.PACU2 ---
Inpatient post-anesthesia follow up: Airway intact: Yes Vital signs: Temperature 97.8 F Pulse Rate 60 Respiratory Rate 18 Blood Pressure 120/75 Pulse Oximetry 94 Oxygen Delivery Me thod Room Air Oxygen Flow Rate 6 Fraction of Inspir ed Oxygen Hydration adequate: Yes Nausea and vomiting: No Pain level: 2 Mental status: Baseline
[2024-01-03] MEDS: tranexamic acid 1,000 MG/100 ML PREMIX 600 MG IV (15:15)
[2024-01-03] MEDS: iron polysaccharide complex 150 mg Capsule PO (17:16)
[2024-01-03] MEDS: docusate sodium 100 mg Capsule PO (17:16)
[2024-01-03] MEDS: ketorolac 30 mg/mL INJ 15 MG IVP (17:16)
[2024-01-03] MEDS: mupirocin oint 22 gm 1 APPLIC NASAL (17:16)
[2024-01-03] MEDS: calcium carb-vit d 600mg/400unit 1 Tablet 1 EACH PO (17:16)
--- NOTE | 2024-01-03 19:06 | PC.NURSE ---
Patient requested to be sent home with hydrocodone instead of oxycodone upon discharge.
[2024-01-03] MEDS: oxyCODONE 5 mg IR Tab/Cap PO (19:48)
[2024-01-04 04:26] VITALS: BP 135/81; PULSE 97; RESP 16; TEMP 36.6; O2SAT 91
[2024-01-04 04:58] LABS: Basophils # 0.1 10^3/uL (0.0-0.1); Basophils % 1.2 %; Eosinophils # 0.6 10^3/uL (0.0-0.8); Eosinophils % 8.2 %; Hematocrit 33.3 % (37-53); Lymphocytes # 0.9 10^3/uL (0.8-4.8); Lymphocytes % 11.8 %; Mean Corpuscular Hemoglobin 33.1 pg (27-33); Mean Corpuscular Volume 100.3 fl (82-101); Mean Platelet Volume 7.8 fL (7.4-10.4); Monocytes # 0.6 10^3/uL (0.2-0.9); Monocytes % 7.9 %; Neutrophils # 5.48 10^3/uL (1.8-7.7); Neutrophils % 70.5 %; Nucleated Red Blood Cells % 0 %; Platelet Count 168 10^3/cmm (157-399); Red Blood Count 3.32 10^6/uL (3.85-5.65); Red Cell Distribution Width 14.2 % (12.1-15.1); White Blood Count 7.77 10^3/uL (3.29-11.43)
[2024-01-04 05:16] LABS: Anion Gap 12.2 (5-19); Blood Urea Nitrogen 14 mg/dL (8-23); Calcium 8.8 mg/dL (8.5-10.5); Carbon Dioxide 25 mmol/L (22-29); Chloride 107 mmol/L (98-107); Creatinine Clr Calc Pharmacy 87.1929; Glucose 95 mg/dL (65-115); Osmolality Calculated 290 mOsm/kg (285-295); Potassium 4.2 mmol/L (3.5-5.1); Sodium 140 mmol/L (136-145)
[2024-01-04] MEDS: lactated ringers 1,000 ML 100 ML IV ×2 (05:58→16:01)
--- NOTE | 2024-01-04 05:59 | PC.NURSE ---
Patient requesting pancakes or waffles for breakfast. Patient stating he does not want any eggs. Kitchen notified.
[2024-01-04] MEDS: acetaminophen 1,000 MG/100 ML PIGGYBACK 400 MG IV (06:00)
[2024-01-04] MEDS: apixaban 5 mg Tablet 2.5 MG PO ×2 (07:35→17:08)
[2024-01-04] MEDS: calcium carb-vit d 600mg/400unit 1 Tablet 1 EACH PO ×2 (07:35→17:08)
[2024-01-04] MEDS: docusate sodium 100 mg Capsule PO (07:37)
[2024-01-04] MEDS: multivitamin therapeutic Tablet 1 TAB PO (07:38)
[2024-01-04] MEDS: iron polysaccharide complex 150 mg Capsule PO ×2 (07:38→17:08)
[2024-01-04] MEDS: ceFAZolin 2,000 MG in sodium chloride 0.9% (plus) 50 ML 100 MG IV (07:39)
[2024-01-04] MEDS: mupirocin oint 22 gm 1 APPLIC NASAL ×2 (07:41→17:09)
[2024-01-04] MEDS: chlorhexidine gluconate 0.12% Btl 473 mL 30 ML MUCOUS MEM ×3 (07:43→17:07)
[2024-01-04 11:07] VITALS: BP 167/86; PULSE 93; RESP 15; TEMP 36.5; O2SAT 96
[2024-01-04 15:27] VITALS: BP 167/87; PULSE 97; RESP 16; TEMP 36.7; O2SAT 95
[2024-01-04] MEDS: ketorolac 30 mg/mL INJ 15 MG IVP (20:02)
[2024-01-04 20:03] VITALS: BP 171/100; PULSE 111; RESP 20; TEMP 36.9; O2SAT 96
--- NOTE | 2024-01-04 20:35 | PM.DCS ---
Discharge Providers Date of Admission: 01/03/24 10:30 Date of Discharge: January 04, 2024 Attending Provider at Admission: Juan Ramon Flores DO Attending Provider at Discharge: Juan Ramon Flores DO Consults: none Primary Care Provider: Norberto Michelle DO Reason for Visit Reason for Visit: M17.11 Brief History: Status post right total knee arthroplasty Hospital Course Hospital Course Patient presented to the preoperative holding area with plan for right total knee arthroplasty after patient has been worked up in the outpatient setting for failed conservative treatment of right knee degenerative joint disease. Once cleared by anesthesia for surgery patient subsequently was taken back to the operative suite underwent anesthesia per anesthesia department and then subsequently underwent a right total knee arthroplasty. Procedure was performed without any complications patient was taken to PACU in stable condition patient recovered well in PACU and then was admitted to the floor postoperatively internal medicine was consulted and on board for medical management and assistance with care. Patient received appropriate PT/OT, postoperative antibiotics, postoperative TXA, pain control, postoperative DVT prophylaxis. Elevation and ice. Patient encouraged for knee range of motion allowed weightbearing as tolerated to the operative lower extremity. Dressing was changed as needed, labs were monitored daily. Patient recovered well postoperatively and worked well and progressed well with therapy. Patient drove himself to work and went to drive himself home educated just for safety would be best if we were able to drive him home transportation will be set up. Slightly increased blood pressure but he has not taken any pain medication because he was wanting to take home. The discharge resumed his home BP medications. Was doing well recovering well and progressed appropriately with therapy. It was determined on postoperative day 1 the patient was stable for discharge from an orthopedic standpoint and medicine. Patient was comfortable with discharge and plan was discharged home. Patient received appropriate discharge instructions as well as pain medication and DVT prophylaxis postoperatively. Given appropriate instructions for dressing management. Patient will follow-up with Dr. Flores/orthopedics in the office in 2 weeks. All questions answered. Understand if there is any issues questions or concerns and contact the office. Physical Exam Narrative: Examination of the right knee: Dressings were on in place clean dry and intact compartments are soft compressible calf soft and nontender. Able to wiggle toes, plantarflex and dorsiflex ankle sensations intact light touch distally. Distal pulses are palpable. Toes warm well-perfused. Patient able to perform straight leg raise. Urinary Catheter Management: Delacruz: Cath Placed During This Visit: yes, but has since been removed by the nurse Reason for Continuing Indwelling Catheter: Decision to DC Catheter Urinary Catheter Date of Insertion: 01/03/24 Urinary Catheter Time of Insertion: 08:20 Date Urinary Catheter Removed: 01/03/24 Time Urinary Catheter Discontinued: 23:37 Discharge Data Studies Completed and Pending Completed Studies During Hospitalization Category Date Time Status XR knee RT 1-2V 76304 Routine Exams 01/03/24 10:14 Completed Pending at discharge Category Date Time Status Basic Metabolic Panel AM LABS Lab 01/05/24 04:00 Ordered Basic Metabolic Panel AM LABS Lab 01/06/24 04:00 Ordered Complete Blood Count w/Auto AM LABS Lab 01/05/24 04:00 Ordered Complete Blood Count w/Auto AM LABS Lab 01/06/24 04:00 Ordered Radiology Impressions Knee X-Ray 01/03/24 10:14 IMPRESSION: Intact knee prosthesis Laboratory Results WBC 7.77 10^3/uL (3.29-11.43) 01/04/24 04:46 RBC 3.32 10^6/uL (3.85-5.65) L 01/04/24 04:46 Hgb 11.00 g/dL (11.27-16.99) L 01/04/24 04:46 Hct 33.3 % (37-53) L 01/04/24 04:46 MCV 100.3 fl (82-101) 01/04/24 04:46 MCH 33.1 pg (27-33) H 01/04/24 04:46 MCHC 33.0 g/dL (30-55) 01/04/24 04:46 RDW 14.2 % (12.1-15.1) 01/04/24 04:46 Plt Count 168 10^3/cmm (157-399) D 01/04/24 04:46 MPV 7.8 fL (7.4-10.4) 01/04/24 04:46 Neut % (Auto) 70.5 % 01/04/24 04:46 Lymph % (Auto) 11.8 % 01/04/24 04:46 [place] % (Auto) 7.9 % 01/04/24 04:46 Eos % (Auto) 8.2 % 01/04/24 04:46 Baso % (Auto) 1.2 % 01/04/24 04:46 Neut # (Auto) 5.48 10^3/uL (1.8-7.7) 01/04/24 04:46 Lymph # (Auto) 0.9 10^3/uL (0.8-4.8) 01/04/24 04:46 [place] # (Auto) 0.6 10^3/uL (0.2-0.9) 01/04/24 04:46 Eos # (Auto) 0.6 10^3/uL (0.0-0.8) 01/04/24 04:46 Baso # (Auto) 0.1 10^3/uL (0.0-0.1) 01/04/24 04:46 Nucleated RBC % (auto) 0 % 01/04/24 04:46 Nucleated RBCs # 0.0 /100WBC 01/04/24 04:46 Sodium 140 mmol/L (136-145) 01/04/24 04:46 Potassium 4.2 mmol/L (3.5-5.1) 01/04/24 04:46 Chloride 107 mmol/L (98-107) 01/04/24 04:46 Carbon Dioxide 25 mmol/L (22-29) 01/04/24 04:46 Anion Gap 12.2 (5-19) 01/04/24 04:46 BUN 14 mg/dL (8-23) 01/04/24 04:46 Creatinine 0.8 mg/dL (0.7-1.2) 01/04/24 04:46 GFR Calculation Not Reportable 01/04/24 04:46 Glucose 95 mg/dL (65-115) 01/04/24 04:46 Calculated Osmolality 290 mOsm/kg (285-295) 01/04/24 04:46 Calcium 8.8 mg/dL (8.5-10.5) 01/04/24 04:46 Blood Type O Positive 01/03/24 06:44 Rho(D) Type Rh positive 01/03/24 06:44 Antibody Screen Negative 01/03/24 06:44 Vitals Last Vital Signs Temp 98.5 F 01/04/24 20:03 Pulse 111 H 01/04/24 20:03 Resp 20 H 01/04/24 20:03 BP 171/100 01/04/24 20:03 Pulse Ox 96 01/04/24 20:03 O2 Del Method Room Air 01/04/24 20:03 O2 Flow Rate 6 01/03/24 10:27 Discharge Plan Discharge Patient Disposition: Home Condition: Stable Prescriptions: New ondansetron 4 mg tablet,disintegrating 4 mg PO Q8H 3 Days Qty: 9 0RF oxycodone 5 mg tablet 5 mg PO Q6H PRN (Reason: pain postop) 7 Days Qty: 28 0RF Calcium 600 + D(3) 600 mg-10 mcg (400 unit) tablet 1 tab PO DAILY 30 Days Qty: 30 0RF Eliquis 2.5 mg tablet 2.5 mg PO BID 14 Days Qty: 28 0RF Continued metoprolol tartrate 50 mg tablet 50 mg PO DAILY lisinopril 20 mg tablet 20 mg PO DAILY diclofenac sodium 75 mg tablet,delayed release (DR/EC) 75 mg PO BID omeprazole 20 mg capsule,delayed release(DR/EC) 20 mg PO DAILY (DME) Disability Counselor Brace (Medial) See Rx Instructions .Route .MEDSUPPLY Qty: 1 0RF Rx Instructions: As directed (DME) hinged knee brace See Rx Instructions .Route .MEDSUPPLY Qty: 1 0RF Rx Instructions: As directed tamsulosin 0.4 mg capsule 0.4 mg PO DAILY Discharge Orders: Discharge Order (Routine); Ordered 01/04/24 Ordered By: Juan Ramon Flores Referrals: Juan Ramon Flores DO [Physician] - 01/23/24 8:15 am Discharge Diet: Advance as tolerated Discharge Activity: Increase activity as tolerated and Limit activity as instructed Patient Instructions: Oxycodone, Rapid Release (By mouth) (ETH-Oxydose, Oxy IR,..., Total Knee Replacement (DC), Opioid Safety Activity Restrictions/Additional Instructions: Postop Total Knee Replacement Orthopedic discharge instructions: Patient may weight-bear as tolerate to the operative extremity Utilize crutches as needed Encourage knee range of motion Ice and elevate as needed for pain and swelling Take pain medication as prescribed Take antinausea medication as needed Take Eliquis as prescribed for blood clot prevention May supplement for pain with Tylenol [id number] as needed Patient should leave dressing on in place for 72 hours, at that time may remove all dressings and leave bandaid JOSE dressing in place for 1 week postop, then remove bandage and battery and discard. Then replace with a dry dressing, keep incision clean dry and intact No baths or soaks Follow-up in the orthopedic office in 2 weeks Contact the office for any questions or concerns Discharge Attestations Time Spent in Discharge Care*: greater than 30 min Quality Metrics Clinical Quality Measures [ No reported AMI, CVA or VTE this stay] Coding Level of Care Code Acute Code for Chg Fwd Time Spent (min) 35
[2024-01-04] MEDS: lisinopril 20 mg Tablet PO (21:38)
[2024-01-04] MEDS: metoprolol tartrate 50 mg Tablet PO (21:38)
[2024-01-04 22:54] VITALS: BP 171/100; PULSE 111; RESP 20; TEMP 36.9; O2SAT 96
== END 2024-01-04 22:55 | disposition home or self-care (01) ==
LOC: MEDSURG 10:32
PROVIDERS: Physician Assistant; Admitting Provider Student in an Organized Health Care Education/Training Program; PCP Emergency Medicine Emergency Medical Services; Visit Provider Student in an Organized Health Care Education/Training Program
PROC: 8E0Y0CZ Robotic Assisted Procedure of Lower Extremity, Open Approach (ICD-10-PCS; CPT 27447; principal; 2024-01-03 07:50)
DX: M17.11 Unilateral primary osteoarthritis, right knee (principal); J44.9 Chronic obstructive pulmonary disease, unspecified; I10 Essential (primary) hypertension; N40.1 Benign prostatic hyperplasia with lower urinary tract symptoms; N13.8 Other obstructive and reflux uropathy; Z87.891 Personal history of nicotine dependence
CPT/HCPCS: 20985; 27447; 36415; 51702; 73560; 80048; 85025; 86850; 86900; 97110; 97116; 97161; 97165; 97530; C1776; G0378; J0131; J0171; J0690; J1885; J2371; J2704; J2795; J3010; J3370; J7030; J7120; P9045

== ENCOUNTER → 2024-01-16 10:06 | Outpatient (BNVA) | payer OTHER, SELFPAY | PROVIDERS: PCP Emergency Medicine Emergency Medical Services; Visit Provider Physician Assistant | DX: M17.11 Unilateral primary osteoarthritis, right knee (principal); Z96.651 Presence of right artificial knee joint | CPT/HCPCS: 73560; 73565; 99024 ==

== ENCOUNTER → 2024-03-14 14:27 | Outpatient (BNVA) | payer OTHER, SELFPAY | PROVIDERS: PCP Emergency Medicine Emergency Medical Services; Visit Provider Physician Assistant | DX: Z96.651 Presence of right artificial knee joint (principal) | CPT/HCPCS: 73560; 73565; 99024 ==